=== PATIENT | male | born 1960 | race American Indian/Alaskan Native ===

== ENCOUNTER 2022-06-13 18:07 | Emergency (ER) | payer MEDICARE ==
[2022-06-13 22:49] LABS: Amphetamine Screen,Urine PRESUMPTIVE NEGATIVE; Benzodiazepines Screen,Urine PRESUMPTIVE NEGATIVE; Cannabinoid Screen,Urine PRESUMPTIVE POSITIVE; Cocaine Screen,Urine PRESUMPTIVE NEGATIVE; Methadone Screen,Urine PRESUMPTIVE NEGATIVE; Opiate Screen,Urine PRESUMPTIVE NEGATIVE
[2022-06-13 23:03] LABS: Basophils % (Auto) 0.8 % (0.0-1.8); Eosinophils # (Auto) 0.1 K/mm3 (0.0-0.4); Eosinophils % (Auto) 2.4 % (0.0-4.3); Hematocrit 38.9 % (35.5-45.6); Hemoglobin 12.7 gm/dl (11.8-15.2); Lymphocytes # (Auto) 2.4 K/mm3 (1.2-5.4); Lymphocytes % (Auto) 42.3 % (13.4-35.0); Mean Corpuscular HGB Conc 33 % (32-34); Mean Corpuscular Volume 89 fl (84-94); Monocytes # (Auto) 0.6 K/mm3 (0.0-0.8); Monocytes % (Auto) 10.6 % (0.0-7.3); Platelet Count 151 K/mm3 (140-440); Red Blood Count 4.36 M/mm3 (3.65-5.03); Red Cell Distribution Width 14.4 % (13.2-15.2)
--- NOTE | 2022-06-13 23:17 | Cat Scan Report ---
CT HEAD WITHOUT CONTRAST INDICATION / CLINICAL INFORMATION: Seizure. TECHNIQUE: All CT scans at this location are performed using CT dose reduction for ALARA by means of automated e xposure control. COMPARISON: None available. FINDINGS: HEMORRHAGE: No evidence of intracranial hemorrhage or extra-axial fluid collection. EXTRA-AXIAL SPACES: There is ex vacuo enlargement of cortical sulci in the left parieto-occipital reg ion secondary to remote left [employer]NER [employer]OR infarction. VENTRICULAR SYSTEM: Ex vacuo dilatation of the atria and occipital horn of the left lateral ventricle is noted. Third and lateral ventricles have an otherwise unremarkable appearance. CEREBRAL PARENCHYMA: Multiple stippled calcifications are present in the left frontal and parietal lo bes. Increased attenuation is seen in the adjacent brain parenchyma. In addition multiple dilated per ivascular structures are observed. These findings indicate the presence of a large arteriovenous malf ormation in the left frontal and parietal regions. Encephalomalacia is present in the left occipital lobe secondary to remote infarction. MIDLINE SHIFT OR HERNIATION: There is no mass effect. CEREBELLUM / BRAINSTEM: Brainstem and cerebellum have an unremarkable appearance. MIDLINE STRUCTURES:No abnormalities of the pituitary gland or pineal region are identified. INTRACRANIAL VESSELS: Findings indicate probable large arteriovenous malformation the left parietal l obe. Additionally noted is a potential 6 mm diameter anterior communicating artery aneurysm. ORBITS: visualized portions of the orbits have an unremarkable appearance. SOFT TISSUES of HEAD: No significant abnormality. CALVARIUM: Evaluation of bone windows reveals no abnormalities. PARANASAL SINUSES / MASTOID AIR CELLS: Visualized portions of the paranasal sinuses are free from inf lammatory mucosal disease. Mastoid air cells are normally pneumatized. IMPRESSION: 1. 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 2. 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 3. Remote left posterior cerebral artery infarction. Signer Name: Sherman Madrid MD Signed: 06/13/2022 11:13 PM Workstation Name: [id number]
[2022-06-13 23:20] LABS: Alanine Aminotransferase 9 units/L (7-56); Albumin 4.3 g/dL (3.9-5); BUN/Creatinine Ratio 16; Blood Urea Nitrogen 14 mg/dL (9-20); Calcium 10.1 mg/dL (8.4-10.2); Hemolysis Index 33
--- NOTE | 2022-06-14 01:36 | Emergency Department Report ---
ED Seizure HPI - General Chief Complaint: Seizure Stated Complaint: POSS SEIZURE Time Seen by Provider: 06/13/22 21:04 Source: patient, EMS Mode of arrival: Ambulatory Limitations: No Limitations - History of Present Illness Initial Comments: 62-year-old -[place] Citizen male with a reported seizure history currently currently in the care [facility] whom reports recently having some changes to his current antiseizure regimen but is unsure of the medications utilized for his seizure prevention, presents to the emergency department compla ining of continuing to have seizures over the past few months with the last seizure reported being about 3 weeks ago. States that when he has seizures he has shaking to his right side leg and arm with tingling but he is unable to control before it resolves. He cannot recall the exact length of time or the frequency. Reports no loss of bowel bladder, no saddle paresthesia, no loss of vision, no tinnitus, no rashes. He reports no seizure lowering threshold practices such as EtOH or illicit drug utilization Witnessed:: No Trauma: No Seizure History: known seizure disorder Place: home Possible Precipitating Event: none Associated Symptoms: denies other symptoms. denies: confusion, cough, diaphoresis, malaise, rash, shortness of breath, weakness, tongue injury - Related Data Allergies Allergy/AdvReac Type Severity Reaction Status Date / Time No Known Allergies Allergy Unverified 06/13/22 18:22 ED Review of Systems ROS: Stated complaint: POSS SEIZURE Other details as noted in HPI Comment: All other systems reviewed and negative ED Physical Exam - General Limitations: No Limitations, Other (Seems to have some issues with memory memory recall) General appearance: alert, in no apparent distress - Head Head exam: Present: atraumatic, normocephalic - Eye Eye exam: Present: normal appearance - ENT ENT exam: Present: normal exam, mucous membranes moist, TM's normal bilaterally - Neck Neck exam: Present: normal inspection, full ROM - Respiratory Respiratory exam: Present: normal lung sounds bilaterally. Absent: respiratory distress, wheezes, rales, decreased breath sounds - Cardiovascular Cardiovascular Exam: Present: regular rate, normal rhythm. Absent: systolic murmur, diastolic murmur, rubs, gallop - GI/Abdominal GI/Abdominal exam: Present: soft, normal bowel sounds - Rectal Rectal exam: Present: deferred - Extremities Exam Extremities exam: Present: normal inspection, normal capillary refill - Back Exam Back exam: Present: normal inspection. Absent: CVA tenderness (R), CVA tenderness (L) - Neurological Exam Neurological exam: Present: alert, oriented X3, CN II-XII intact - Expanded Neurological Exam Expanded Patient oriented to: Present: person, place, time Speech: Present: fluid speech Cerebellar function: Finger to Nose: Normal Best Eye Response ([place]): (4) open spontaneously Best Motor Response ([place]): (6) obeys commands Best Verbal Response ([place]): (5) oriented Tia Total: 15 - Psychiatric Psychiatric exam: Present: normal affect, normal mood - Skin Skin exam: Present: warm, dry, intact, normal color. Absent: rash ED Course Vital Signs 06/13/22 18:08 Temperature 98.0 F Pulse Rate 64 Respiratory 18 Rate Blood Pressure 134/86 [Left] O2 Sat by Pulse 98 Oximetry ED Medical Decision Making - Lab Data Result diagrams: 06/13/22 22:44 06/13/22 22:44 - Radiology Data Radiology results: report reviewed [facility] [address] [place] [address] Cat Scan Report Signed Patient: SADE AGUILAR MR#: [id number] [birth year] : 1960 Acct:[id number] Age/Sex: 62 / M ADM Date: 06/13/22 Loc: ED Attending Dr: Ordering Physician: JALIL BABIN Date of Service: 06/13/22 Procedure(s): CT head/brain wo con Accession Number(s): [id number] cc: JALIL BABIN CT HEAD WITHOUT CONTRAST INDICATION / CLINICAL INFORMATION: Seizure. TECHNIQUE: All CT scans at this location are performed using CT dose reduction for ALARA by means of automated exposure control. COMPARISON: None available. FINDINGS: HEMORRHAGE: No evidence of intracranial hemorrhage or extra-axial fluid collection. 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 VENTRICULAR SYSTEM: Ex vacuo dilatation of the atria and occipital horn of the left lateral ventricle is noted. Third and lateral ventricles have an otherwise unremarkable appearance. CEREBRAL PARENCHYMA: Multiple stippled calcifications are present in the left frontal and parietal lobes. Increased attenuation is seen in the adjacent brain parenchyma. In addition multiple dilated perivascular structures are observed. These findings indicate the presence of a large arteriovenous malformation in the left frontal and parietal regions. Encephalomalacia is present in the left occipital lobe secondary to remote infarction. MIDLINE SHIFT OR HERNIATION: There is no mass effect. CEREBELLUM / BRAINSTEM: Brainstem and cerebellum have an unremarkable appearance. MIDLINE STRUCTURES:No abnormalities of the pituitary gland or pineal region are identified. INTRACRANIAL VESSELS: Findings indicate probable large arteriovenous malformation the left parietal lobe. Additionally noted is a potential 6 mm diameter anterior communicating artery aneurysm. ORBITS: visualized portions of the orbits have an unremarkable appearance. SOFT TISSUES of HEAD: No significant abnormality. CALVARIUM: Evaluation of bone windows reveals no abnormalities. PARANASAL SINUSES / MASTOID AIR CELLS: Visualized portions of the paranasal sinuses are free from inflammatory mucosal disease. Mastoid air cells are normally pneumatized. IMPRESSION: 1. 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 2. 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 3. Remote left posterior cerebral artery infarction. Signer Name: Sherman Madrid MD Signed: 06/13/2022 11:13 PM Workstation Name: [id number] Transcribed By: Dictated By: Sherman Madrid MD Electronically Authenticated By: Sherman Madrid MD Signed Date/Time: 06/13/222312 DD/ 06 TD/TT: - Medical Decision Making 62-year-old [place] Citizen male presents emerged department complaining of seizure which occurred about 3 to 4 days ago at of his care physician suggested his antiseizure medication. No seizures were witnessed while here in the emergency department. Labs show no no significant findings of his CT scan did show evidence of AV malformation and an aneurysm and old infarct these findings may have been over the patient is a poor historian we need to confirm this with his [place] neurologist. Critical care attestation.: If time is entered above; I have spent that time in minutes in the direct care of this critically ill patient, excluding procedure time. ED Disposition Clinical Impression: History of seizure, Cerebral aneurysm Disposition: HOME / SELF CARE / HOMELESS Is pt being admited?: No Does the pt Need Aspirin: No Condition: Stable Instructions: Seizure, Adult Referrals: PRIMARY CARE, [Primary Care Provider] - 3-5 Days
--- NOTE | 2022-06-14 07:50 | Emergency Department Report ---
Blank Doc - Documentation Documentation: Contacted [facility] services. Spoke with nurse advice line. Was infor med that patient has an upcoming appointment June 19 at 9:00 with the neurology department. Patient will be informed of this appointment time and date. The importance of keeping this appointment will be stressed to patient. No further work-up or recommendations are needed at this time. Patient will be informed that if he starts to experience any acute symptoms since his discharge and prior to his appointment to report back to the ER for further evaluation. Patient agrees with plan of care and verbalized understanding. Vital Signs 06/13/22 18:08 Temperature 98.0 F Pulse Rate 64 Respiratory 18 Rate Blood Pressure 134/86 [Left] O2 Sat by Pulse 98 Oximetry
[2022-06-14 08:11] VITALS: BP 146/77
== END 2022-06-14 09:30 | disposition home or self-care (01) ==
LOC: ED 18:07
DX: I67.1 Cerebral aneurysm, nonruptured (principal); G43.909 Migraine, unspecified, not intractable, without status migrainosus; Z79.899 Other long term (current) drug therapy
CPT/HCPCS: 36415; 70450; 80053; 80307; 80320; 85025; 99284; G0480

== ENCOUNTER 2022-06-15 14:30 | Emergency (ER) | payer MEDICARE ==
[2022-06-15 18:34] LABS: Basophils % (Auto) 0.5 % (0.0-1.8); Eosinophils % (Auto) 0.6 % (0.0-4.3); Hematocrit 42.4 % (35.5-45.6); Lymphocytes # (Auto) 3.4 K/mm3 (1.2-5.4); Lymphocytes % (Auto) 46.7 % (13.4-35.0); Mean Corpuscular HGB Conc 33 % (32-34); Mean Corpuscular Volume 90 fl (84-94); Monocytes # (Auto) 0.7 K/mm3 (0.0-0.8); Monocytes % (Auto) 9.3 % (0.0-7.3); Platelet Count 168 K/mm3 (140-440); Red Blood Count 4.73 M/mm3 (3.65-5.03)
[2022-06-15 18:58] LABS: Alanine Aminotransferase 15 units/L (7-56); Albumin 4.8 g/dL (3.9-5); BUN/Creatinine Ratio 12; Blood Urea Nitrogen 14 mg/dL (9-20); Hemolysis Index 23
[2022-06-16 05:13] VITALS: BP 130/77
--- NOTE | 2022-06-16 05:15 | Emergency Department Report ---
ED General Adult HPI - General Chief complaint: Extremity Problem,Nontraumatic Stated complaint: R ARM SHAKING Time Seen by Provider: 06/16/22 03:28 Source: patient, EMS Mode of arrival: Ambulatory Limitations: No Limitations - Related Data Allergies Allergy/AdvReac Type Severity Reaction Status Date / Time No Known Allergies Allergy Verified 06/15/22 14:31 ED Review of Systems ROS: Stated complaint: R ARM SHAKING Other details as noted in HPI Comment: All other systems reviewed and negative ED Physical Exam - General Limitations: No Limitations General appearance: alert, in no apparent distress - Head Head exam: Present: atraumatic, normocephalic - Eye Eye exam: Present: normal appearance, PERRL, EOMI Pupils: Present: normal accommodation - ENT ENT exam: Present: mucous membranes moist - Neck Neck exam: Present: normal inspection - Respiratory Respiratory exam: Present: normal lung sounds bilaterally. Absent: respiratory distress - Cardiovascular Cardiovascular Exam: Present: regular rate, normal rhythm. Absent: systolic murmur, diastolic murmur, rubs, gallop - GI/Abdominal GI/Abdominal exam: Present: soft, normal bowel sounds. Absent: distended, tenderness, guarding, diminished bowel sounds - Rectal Rectal exam: Present: deferred - Extremities Exam Extremities exam: Present: normal inspection, normal capillary refill - Back Exam Back exam: Present: normal inspection. Absent: CVA tenderness (R), CVA tenderness (L) - Neurological Exam Neurological exam: Present: alert, oriented X3, CN II-XII intact, normal gait - Psychiatric Psychiatric exam: Present: normal affect, normal mood - Skin Skin exam: Present: warm, dry, intact, normal color. Absent: rash ED Course Vital Signs 06/15/22 06/16/22 14:30 00:16 Temperature 98.9 F Pulse Rate 78 63 Respiratory 16 Rate Blood Pressure 135/81 Blood Pressure 154/102 [Left] O2 Sat by Pulse 100 98 Oximetry ED Medical Decision Making - Lab Data Result diagrams: 06/15/22 17:42 06/15/22 17:42 Critical care attestation.: If time is entered above; I have spent that time in minutes in the direct care of this critically ill patient, excluding procedure time. ED Disposition Disposition: HOME / SELF CARE / HOMELESS Condition: Stable Referrals: [facility] [Outside] - 06/19/22 (Please keep the appointment established with your primary care provider on June 19 as he has plans to adjust your medications and further testing) PRIMARY CARE [Primary Care Provider] - 3-5 Days
== END 2022-06-16 05:13 | disposition home or self-care (01) ==
LOC: ED 14:30
DX: R25.1 Tremor, unspecified (principal)
CPT/HCPCS: 36415; 80053; 85025; 99283